=== PATIENT | male | born 1995 | race Caucasian/White ===

== ENCOUNTER 2017-02-07 11:02 | Emergency (ER) | payer MEDICAID, OTHER ==
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
[2017-02-07 11:46] VITALS: BP 120/74
[2017-02-07] MEDS ORDERED: Acetaminophen/HYDROcodone 325-10 MG Tab PO ONE (12:23)
[2017-02-07] MEDS ORDERED: Amoxicillin/Clavulanate K 875-125 MG Tab PO ONE (12:23)
[2017-02-07] MEDS ORDERED: Amoxicillin/Clavulanate K 875-125 MG Tab ONE (12:43)
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
== END 2017-02-07 12:48 | disposition home or self-care (01) ==
LOC: DL.ED 11:02
DX: S02.2XXA Fracture of nasal bones, initial encounter for closed fracture (principal); R04.0 Epistaxis; W22.8XXA Striking against or struck by other objects, initial encounter
CPT/HCPCS: 70486; 99283; A9270